=== PATIENT | female | born 1990 | race Caucasian/White ===

== ENCOUNTER 2017-11-24 23:23 | Emergency (ER) | payer BC ==
[~2017-11-24] VITALS: Ht 167.6 cm; Wt 52.0 kg
[2017-11-25] MEDS ORDERED: PREDNISONE 20MG TABLET PO ONE (00:30)
[2017-11-25 01:40] VITALS: BP 129/74
[2017-11-25 01:47] LABS: HCG SCREEN NEGATIVE
== END 2017-11-25 01:47 | disposition home or self-care (01) ==
LOC: ER 23:28
DX: T78.40XA Allergy, unspecified, initial encounter (principal); Z88.6 Allergy status to analgesic agent; X58.XXXA Exposure to other specified factors, initial encounter
CPT/HCPCS: 71010; 84703; 99283; J7512